=== PATIENT | female | born 1960 | race African-American/Black ===

== ENCOUNTER → 2016-08-15 | Outpatient (CLI) | payer BC ==
[2015-12-28 11:41] VITALS: BP 128/88
--- NOTE | 2016-08-15 17:36 | KCIC ---
Bilateral digital screening mammograms with CAD: HISTORY Routine screening. History of left breast cancer with mastectomy. COMPARISON Comparison is made to previous studies dated back to 08/07/2012.. FINDINGS Breast density category B. The left mastectomy site shows no acute abnormalities. The skin and nipple of the right breast show no abnormalities. No abnormal lymph nodes are seen in the axilla. The breast parenchyma shows scattered fibroglandular density. There are no dominant masses, suspicious calcifications or architectural distortions. IMPRESSION No evidence of malignancy. Recommend routine annual mammographic screening. This study was interpreted with the benefit of Computerized Aided Detection (CAD). Mammography is not 100% sensitive in detecting breast cancer. Therefore, a self breast exam and a clinical breast exam are very important. A negative mammogram does not negate a clinically suspicious finding and should not result in a delay in biopsying a clinically suspicious abnormality. BI-RADS category 1. Negative. This patient's information has been entered into a reminder system for the patient to be notified with the results of this examination and a target date for her next mammograms. Electronically signed by: Marycarmen Byers MD (Aug 15, 2016 17:34:04)
== END | disposition home or self-care (01) ==
LOC: KCIC MAMMO 13:59
PROVIDERS: ATTEND Internal Medicine Hematology & Oncology
DX: Z12.31 Encounter for screening mammogram for malignant neoplasm of breast (principal)
CPT/HCPCS: G0202; 77067

== ENCOUNTER → 2017-10-09 | Outpatient (CLI) | payer BC | END | disposition home or self-care (01) | LOC: KCIC MAMMO 16:02 | DX: Z12.31 Encounter for screening mammogram for malignant neoplasm of breast (principal) | CPT/HCPCS: 77067 ==

== ENCOUNTER → 2018-12-24 | Outpatient (CLI) | payer BC ==
[2015-12-28 11:41] VITALS: BP 128/88
--- NOTE | 2018-12-24 18:02 | KCIC ---
Bilateral digital screening mammograms: Reason for examination: Routine screening. History of left breast cancer with mastectomy in 2010. Comparison is made to previous studies dated 10/09/2017 and 08/15/2016. Interpretation was made with the benefit of CAD. The left mastectomy site shows no abnormality. The skin and nipple of the right breast show no abnormalities. No abnormal axillary lymph nodes are seen. The right breast parenchyma shows scattered fibroglandular density. (Breast density: Category B.) There are no dominant masses, suspicious calcifications or architectural distortions. Impression: No evidence of malignancy. Recommend routine screening. BI-RADS Category 2: Benign. "Our facility is accredited by the [employer] Mammography [employer]." This patient's information has been entered into a reminder system for the patient to be notified with the results of her examination and a target date for the next mammogram. Electronically signed by: Arianna Byers MD (12/24/2018 6:00 PM) [id number]
== END | disposition home or self-care (01) ==
LOC: KCIC MAMMO 15:35
PROVIDERS: ATTEND Internal Medicine Hematology & Oncology
DX: Z12.31 Encounter for screening mammogram for malignant neoplasm of breast (principal); Z90.12 Acquired absence of left breast and nipple; Z85.3 Personal history of malignant neoplasm of breast
CPT/HCPCS: 77067

== ENCOUNTER → 2019-12-26 | Outpatient (CLI) | payer BC ==
[2015-12-28 11:41] VITALS: BP 128/88
--- NOTE | 2019-12-26 18:26 | KCIC ---
Bilateral digital screening mammograms: Reason for examination: Routine screening. History of left breast cancer with mastectomy. Comparison is made to previous studies dated back to 07/22/2015. Interpretation is made with the benefit of CAD. The left mastectomy site shows no new abnormalities. The skin and right nipple show no abnormalities. No abnormal lymph nodes are seen. The breast parenchyma is predominantly fatty. (Breast density: Category A.) There are no dominant masses, suspicious calcifications or architectural distortions. Impression: No evidence of malignancy. Recommend routine screening. BI-RADS Category 1: Negative. "Our facility is accredited by the [employer] Mammography Program." This patient's information has been entered into a reminder system for the patient to be notified with the results of her examination and a target date for the next mammogram. Electronically signed by: Arianna Byers MD (12/26/2019 6:23 PM) [email or web address]
== END | disposition home or self-care (01) ==
LOC: KCIC MAMMO 15:56
PROVIDERS: ATTEND Internal Medicine Hematology & Oncology
DX: Z12.31 Encounter for screening mammogram for malignant neoplasm of breast (principal)
CPT/HCPCS: 77067

== ENCOUNTER → 2021-02-19 | Outpatient (CLI) | payer BC ==
[2015-12-28 11:41] VITALS: BP 128/88
--- NOTE | 2021-02-21 12:00 | KCIC ---
Bilateral digital screening 2-D and 3-D (digital breast tomosynthesis) mammogram: Reason for examination: Routine screening. Comparison: Mammograms from 12/26/2019 and 12/24/2018. Interpretation was made with the benefit of CAD. FINDINGS: Breast density: Category B. There are scattered areas of fibroglandular density No suspicious breast mass, malignant appearing calcifications, or architectural distortion is seen. T here has been a left mastectomy with no apparent residual fibroglandular tissue. IMPRESSION: No evidence of malignancy. Assessment: BI-RADS 1. Negative. Recommendation: Routine screening mammograms. Because there is no significant residual breast tissue on the left, it will not be necessary to perform a left mammogram in the future. This patient's information has been entered into a reminder system for the patient to be notified wit h the results of her examination and a target date for the next mammogram. Electronically signed by: Areli Guzman MD (02/21/2021 11:57 AM) [email or web address]
== END ==
LOC: KCIC MAMMO 15:13
PROVIDERS: ATTEND Internal Medicine Hematology & Oncology
DX: Z12.31 Encounter for screening mammogram for malignant neoplasm of breast (principal)
CPT/HCPCS: 77063; 77067